=== PATIENT | male | born 1960 | race Caucasian/White ===

== ENCOUNTER 2020-03-06 20:32 | Emergency (ER) | payer BC, OTHER ==
--- NOTE | 2020-03-06 20:35 | ERPHSYRPT ---
- History of Present Illness Time Seen by Provider: 03/06/20 20:35 Source: patient Exam Limitations: no limitations Physician History: This is a 59-year-old morbidly obese white male has a history of hypertension and states that he does not take his medication for his high blood pressure as he should, and presents with redness and swelling to the right lower extremity. pt denies soa and denies cp. Method of Injury: fell Occurred: last week Quality: other (mild tenderness ) Severity of Pain-Max: mild Severity of Pain-Current: mild Lower Extremities Pain: leg: right Allergies/Adverse Reactions: No Known Drug Allergies Allergy (Unverified 03/06/20 20:55) Home Medications: Omeprazole Magnesium [Prilosec Otc] 20 mg PRN 03/21/14 [History] Levothyroxine Sodium [Synthroid] 200 mcg PO DAILY 03/06/20 [History] Hx Tetanus, Diphtheria Vaccination/Date Given: No Hx Influenza Vaccination/Date Given: No Hx Pneumococcal Vaccination/Date Given: No Travel Risk - International Travel Have you traveled outside of the country in past 3 weeks: No Have you or anyone close to you been diagnosed with or: No Do your reside in a community with a known COVID-19 case?: Yes If Yes where:: [facility] - Coronavirus Screening Has patient experienced Coronavirus symptoms: No - Review of Systems Constitutional: No Symptoms Eyes: No Symptoms Ears, Nose, & Throat: No Symptoms Respiratory: No Symptoms Cardiac: No Symptoms Abdominal/Gastrointestinal: No Symptoms Genitourinary Symptoms: No Symptoms Skin: Cellulitis (Right lower extremity mild) Neurological: No Symptoms Psychological: No Symptoms Endocrine: No Symptoms Hematologic/Lymphatic: No Symptoms Immunological/Allergic: No Symptoms All Other Systems: Reviewed and Negative - Past Medical History Pertinent Past Medical History: Yes Neurological History: No Pertinent History ENT History: No Pertinent History Cardiac History: Other Respiratory History: Sleep Apnea Endocrine Medical History: Hypothyroidism Musculoskeletal History: Osteoarthritis GI Medical History: GERD History: No Pertinent History Psycho-Social History: No Pertinent History Male Reproductive Disorders: No Pertinent History Other Medical History: heart mumur, enlarged heart, heart stress test - Past Surgical History Past Surgical History: Yes Neuro Surgical History: No Pertinent History Cardiac: No Pertinent History Respiratory: No Pertinent History Gastrointestinal: No Pertinent History Genitourinary: Kidney Surgery Musculoskeletal: Orthopedic Surgery, Other (multiple orthopedic surgeries) Other Surgical History: KIDNEY LEFT SURG,LEFT KNEE SURG FOR BULLET,SHOULDER SURG - Social History Smoking Status: Never smoker Exposure to second hand smoke: No Drug Use: none Patient Lives Alone: No - Nursing Vital Signs Nursing Vital Signs: Initial Vital Signs Temperature 98 F 03/06/20 20:35 Pulse Rate 77 03/06/20 20:35 Respiratory Rate 26 H 03/06/20 20:35 Blood Pressure 203/116 03/06/20 20:35 O2 Sat by Pulse Oximetry 97 03/06/20 20:35 - Physical Exam General Appearance: no apparent distress, alert, obese Eyes, Ears, Nose, Throat Exam: normal ENT inspection, moist mucous membranes Neck Exam: normal inspection, non-tender, supple, full range of motion Cardiovascular/Respiratory Exam: chest non-tender, normal breath sounds, regular rate/rhythm, heart sounds normal Gastrointestinal/Abdominal Exam: non-tender Back Exam: normal inspection, normal range of motion, No CVA tenderness, No vertebral tenderness Hips Exam: bilateral: non-tender, normal inspection, normal range of motion, no evidence of injury Legs Exam: right leg: normal range of motion, no evidence of injury, soft tissue tenderness (Mild right lower leg cellulitis), left leg: non-tender, normal inspection Knees Exam: bilateral knee: non-tender, normal inspection, normal range of motion, no evidence of injury Ankle Exam: bilateral ankle: non-tender, normal inspection, normal range of motion, no evidence of injury Foot Exam: bilateral foot: non-tender, normal inspection, normal range of motion , no evidence of injury Neuro/Tendon Exam: normal sensation, normal motor functions, normal tendon functions Mental Status Exam: alert, oriented x 3, cooperative Skin Exam: other (Mild cellulitis right lower extremity from above the ankle to mid distance between the knee and ankle on the right side) SpO2 Interpretation: normal O2 Delivery: Room Air Ordered Tests: Active Orders 24 hr Category Date Time Status Isolation, Initiate & Maintain Q4H Care 03/06/20 20:54 Active D-DIMER QUANTITATIVE Stat Lab 03/06/20 21:03 Completed Medication Summary Discontinued Medications Generic Name Dose Route Start Last Admin Trade Name Freq PRN Reason Stop Dose Admin Ceftriaxone Sodium 1,000 mg 03/06/20 20:43 03/06/20 21:03 Rocephin 1000 Mg Inj IM 03/06/20 20:44 1,000 mg STAT ONE Administration Ceftriaxone Sodium Confirm 03/06/20 20:59 Rocephin 1000 Mg Inj Administered 03/06/20 21:00 Dose 1,000 mg .ROUTE .STK-MED ONE Lidocaine HCl Confirm 03/06/20 21:02 Xylocaine 1% Hcl 20 Ml Mdv Administered 03/06/20 21:03 Dose 3 ml .ROUTE .STK-MED ONE Lab/Rad Data: Laboratory Results 03/06/20 Range/Units 21:03 D-Dimer 461 (215-500) ng/mL - Departure Departure Disposition: Home Clinical Impression: Cellulitis, Hypertension Condition: Stable Critical Care Time: No Referrals: CECILY RODRIGUEZ [Primary Care Provider] - Additional Instructions: Take all your medications as prescribed. Follow-up with your primary care physician for persistent symptoms. Monitor your blood pressure closely over the next few days. Prescriptions: Smz/Tmp Ds Tablet [Bactrim Ds Tablet] 1 udtab PO BID #14 tablet
[2020-03-06] MEDS ORDERED: Rocephin 1000 MG INJ IM ONE (20:43)
[2020-03-06] MEDS ORDERED: Rocephin 1000 MG INJ ONE (20:59)
[2020-03-06] MEDS ORDERED: XYLOCAINE 1% HCL 20 ML MDV ONE (21:02)
[2020-03-06 21:49] VITALS: BP 170/89; PULSE 68; O2SAT 96
== END 2020-03-06 21:55 | disposition home or self-care (01) ==
LOC: ED 20:32
DX: I10 Essential (primary) hypertension (principal); E03.9 Hypothyroidism, unspecified; M19.90 Unspecified osteoarthritis, unspecified site; K21.9 Gastro-esophageal reflux disease without esophagitis; R01.1 Cardiac murmur, unspecified; I51.7 Cardiomegaly
CPT/HCPCS: 36415; 85379; 96372; 99284; J0696